=== PATIENT | female | born 1980 | race Caucasian/White ===

== ENCOUNTER 2018-08-18 06:08 | Day surgery (SDC) | payer OTHER ==
[2018-08-18] MEDS ORDERED: CEFAZOLIN 2 GM/50 ML (PMX) 50 ML IVPB (07:00)
[2018-08-18] MEDS ORDERED: SEVOFLURANE 15 MIN (07:00)
[2018-08-18] MEDS: SOD CHLORIDE 0.9% 1,000 ML IV (07:00)
[2018-08-18] MEDS ORDERED: MIDAZOLAM 1 MG/ML 2 ML INJ (07:01)
[2018-08-18] MEDS ORDERED: PROPOFOL 20 ML (07:01)
[2018-08-18] MEDS ORDERED: CEFAZOLIN 1 GM INJ (07:01)
[2018-08-18] MEDS ORDERED: FENTAnyl 50 MCG/ML VIAL (07:01)
[2018-08-18] MEDS ORDERED: LIDOCAINE 2% (SDV) 5 ML INJ (07:01)
[2018-08-18 07:14] LABS: ADD MAN DIFF? NO
[2018-08-18 07:17] LABS: WHITE BLOOD COUNT 7.3 10^3/ul (4.8-10.8)
[2018-08-18 07:17] LABS: BASOPHIL # 0.1 10^3/ul (0.0-0.1); EOSINOPHILS # 0.1 10^3/ul (0.0-0.5); EOSINOPHILS % 1.5 % (0.0-7.0); HEMOGLOBIN 10.7 g/dl (12.0-16.0); LYMPHOCYTES # 1.6 10^3/ul (0.8-2.9); LYMPHOCYTES % 22.2 % (15.0-51.0); MEAN CORPUSCULAR HEMOGLOBIN 23.3 pg (29.0-33.0); MEAN CORPUSCULAR HGB CONC 29.7 g/dl (32.0-37.0); MEAN CORPUSCULAR VOLUME 78.4 fl (82.0-101.0); MEAN PLATELET VOLUME 9.3 fl (7.4-10.4); MONOCYTE # 0.6 10^3/ul (0.3-0.9); MONOCYTES % 7.5 % (0.0-11.0); NEUTROPHIL # 4.9 10^3/ul (1.6-7.5); NEUTROPHILS % 67.5 % (39.0-77.0); PLATELET COUNT 409 10^3/UL (140-415); RED BLOOD COUNT 4.59 10^6/ul (4.20-5.40); RED CELL DISTRIBUTION WIDTH 17.1 % (11.5-14.5)
[2018-08-18 07:36] LABS: PROTIME 13.3 Sec (11.9-14.9)
[2018-08-18 07:37] LABS: PARTIAL THROMBOPLASTIN TIME 30.4 Sec (23.0-35.0)
[2018-08-18] MEDS ORDERED: FAMOTIDINE 20 MG INJ (07:40)
[2018-08-18] MEDS ORDERED: ONDANSETRON 4 MG INJ (07:40)
[2018-08-18] MEDS ORDERED: DEXAMETHASONE 4 MG/ML 5 ML INJ (07:40)
[2018-08-18] MEDS ORDERED: METOCLOPRAMIDE 10 MG INJ (07:40)
[2018-08-18 07:53] LABS: ALANINE AMINOTRANSFERASE 15 IU/L (13-69); ALBUMIN 4.1 g/dl (3.3-4.9); ALBUMIN/GLOBULIN RATIO 1.24; ALKALINE PHOSPHATASE 123 IU/L (42-121); ANION GAP 8 (5-13); ASPARTATE AMINO TRANSFERASE 16 IU/L (15-46); BILIRUBIN,INDIRECT 0.3 mg/dl (0-1.1); BILIRUBIN,TOTAL 0.3 mg/dl (0.2-1.3); BLOOD UREA NITROGEN 11 mg/dl (7-20); CALCIUM 9.4 mg/dl (8.4-10.2); CARBON DIOXIDE 29 mmol/L (21-31); CHLORIDE 104 mmol/L (97-110); CREATININE 0.48 mg/dl (0.44-1.00); Estimated GFR > 60 mL/min (>60); GLUCOSE 96 mg/dl (70-220); POTASSIUM 4.2 mmol/L (3.5-5.1); SODIUM 141 mmol/L (135-144); TOTAL PROTEIN 7.4 g/dl (6.1-8.1)
[2018-08-18] MEDS: BUPIVACAINE 0.25% (MPF) 30 ML INJ (08:01)
[2018-08-18] MEDS ORDERED: HYDROCODONE/APAP (5/325) TAB PO (08:30)
[2018-08-18] MEDS ORDERED: FENTAnyl 50 MCG/ML VIAL IV ×3 (08:30)
[2018-08-18] MEDS ORDERED: OXYCODONE/ACETAMINOPHEN (5/325) TAB PO ×2 (08:30)
[2018-08-18] MEDS: ONDANSETRON 4 MG INJ IV (08:37)
[2018-08-18] MEDS: MEPERIDINE 25 MG INJ IV (08:37)
== END 2018-08-18 09:55 | disposition home or self-care (01) ==
LOC: SDS 06:08
DX: D24.2 Benign neoplasm of left breast (principal)
CPT/HCPCS: 19301; 80053; 85025; 85610; 85730; 88307